=== PATIENT | female | born 1985 | race Caucasian/White ===

== ENCOUNTER 2018-08-25 08:38 | Emergency (ER) | payer SELFPAY ==
[~2018-08-25] VITALS: Ht 154.9 cm; Wt 95.3 kg
[2018-08-25 08:56] VITALS: BP 145/96
--- NOTE | 2018-08-25 09:26 | PHYS DOC ---
Past Medical History Past Medical History: Depression Past Surgical History: No Surgical History Alcohol Use: None Drug Use: None Adult General Chief Complaint Chief Complaint: RING REMOVAL HPI HPI Patient is a 33 year old female who presents to the emergency room with complaints of a ring being stuck on her left index finger for the last 2 days. She denies any injury, numbness, tingling, or decreased movement of the affected finger. She denies any increased pain with movement of the affected finger. Review of Systems Review of Systems Musculoskeletal: See history of present illness Integument: Denies rash or skin lesions [] Neurologic: Denies focal weakness or sensory changes [] Complete systems were reviewed and found to be within normal limits, except as documented in this note. Allergies Allergies Allergies Coded Allergies Type Severity Reaction Last Updated Verified No Known Drug Allergies 02/18/15 No Physical Exam Physical Exam Constitutional: Well developed, well nourished, no acute distress, non-toxic appearance. [] HENT: Normocephalic, atraumatic, bilateral external ears normal, nose normal. [] Eyes: conjunctiva normal, no discharge. [] Skin: Warm, dry, no erythema, no rash. [] Extremities: No tenderness, no cyanosis, no clubbing, ROM intact, 1+ edema noted to left index finger with ring stuck between the MCP and PIP Neurologic: Alert and oriented X 3, normal motor function, normal sensory function, no focal deficits noted. [] Psychologic: Affect normal, judgement normal, mood normal. [] Current Patient Data Vital Signs Vital Signs Date Time Temp Pulse Resp B/P (MAP) Pulse Ox O2 Delivery O2 Flow Rate FiO2 08/25/18 08:56 98.0 90 16 145/96 (112) 98 Room Air 98.0 EKG EKG [] Radiology/Procedures Radiology/Procedures Ring was removed by RN with ring cutter, no abrasions or deformity noted post removal[] Course & Med Decision Making Course & Med Decision Making Pertinent Labs and Imaging studies reviewed. (See chart for details) [] Staff Physician Addendum: I was working in the ER during the course of this patient's visit. I was available for consultation as needed, but I was not directly involved in the care of this patient. Dragon Disclaimer Dragon Disclaimer This electronic medical record was generated, in whole or in part, using a voice recognition dictation system. Departure Departure Impression: Primary Impression: Tight ring on finger Disposition: 01 HOME, SELF-CARE Condition: STABLE Referrals: NO PCP (PCP) Patient Instructions: Contusion, [id number] Additional Instructions: Elevate and apply ice to the swollen area, may take Tylenol or ibuprofen as needed for pain. Follow-up with your primary care doctor for symptoms persist. Return to the emergency room if symptoms worsen. RICKIE MAHAN APRN Aug 25, 2018 09:25 KARON REYES MD Aug 25, 2018 13:57
== END 2018-08-25 09:41 | disposition home or self-care (01) ==
LOC: ER 08:38
DX: S60.451A Superficial foreign body of left index finger, initial encounter (principal); F32.9 Major depressive disorder, single episode, unspecified; W49.04XA Ring or other jewelry causing external constriction, initial encounter; Y93.89 Activity, other specified; Y92.89 Other specified places as the place of occurrence of the external cause; Y99.8 Other external cause status
CPT/HCPCS: 99284

== ENCOUNTER 2018-10-16 13:19 | Emergency (ER) | payer SELFPAY ==
[~2018-10-16] VITALS: Ht 157.5 cm; Wt 83.9 kg
[2018-10-16 13:19] VITALS: BP 169/111
--- NOTE | 2018-10-16 14:08 | PHYS DOC ---
Past Medical History Past Medical History: Anxiety, Depression Past Surgical History: No Surgical History Additional Information: 0.75 PPD Alcohol Use: Heavy Additional Information: DAILY," 5.2 OUNCES ALCOHOL DAILY" Drug Use: None Adult General Chief Complaint Chief Complaint: ANXIETY/PANIC ATTACK HPI HPI Patient is a 33 year old female with long-standing history of alcohol abuse and anxiety presents with complaints of increasing anxiety and continued alcohol abuse. No report of HI, SI, hallucinations delusions or paranoia. Recently released from correctional facility. Does not request any help in the emergency department and declines labs, and will assistance offered. Patient was willing to speak with CARSON Huggins of the psychiatric assessment team. [] Review of Systems Review of Systems Review of systems unavailable due to limited cooperation All other systems were reviewed and found to be within normal limits, except as documented in this note. Allergies Allergies Allergies Coded Allergies Type Severity Reaction Last Updated Verified No Known Drug Allergies 02/18/15 No Physical Exam Physical Exam Constitutional: Disheveled, tearful.[] HENT: Normocephalic, atraumatic, bilateral external ears normal, oropharynx moist, no oral exudates, nose normal. [] Eyes: PERRLA, EOMI, conjunctiva normal, conjunctiva injected. [] Extremities: No tenderness, no cyanosis, no clubbing, ROM intact, no edema. [] Neurologic: Alert and oriented X 3, slurring of words normal motor function, normal sensory function, no focal deficits noted. [] Psychologic: Affect tearful, emotionally labile, no HI SI hallucinations[] Current Patient Data Vital Signs Vital Signs Date Time Temp Pulse Resp B/P (MAP) Pulse Ox O2 Delivery O2 Flow Rate FiO2 10/16/18 13:19 97.5 122 24 169/111 (130) 99 Room Air 97.5 EKG EKG [] Radiology/Procedures Radiology/Procedures [] Course & Med Decision Making Course & Med Decision Making Pertinent Labs and Imaging studies reviewed. (See chart for details) [Patient alert and oriented 3. She is able to say why she is here and declines all medical evaluation and help offered and requests to leave the emergency department. Outpatient resources alcohol and anxiety offered. Patient discharged AGAINST MEDICAL ADVICE.] Dragon Disclaimer Dragon Disclaimer This electronic medical record was generated, in whole or in part, using a voice recognition dictation system. Departure Departure Impression: Primary Impression: Anxiety state Additional Impression: Substance abuse Disposition: 07 AGAINST MEDICAL ADVICE Condition: GUARDED Patient Instructions: Alcohol Intoxication, [id number], Substance Abuse-Brief Additional Instructions: Please follow up with your PCP and the outpatient resoureces provided for you for evaluation and management of anxiety and alcohol dependance. Problem Qualifiers KIRSTEN MARTINEZ DO Oct 16, 2018 14:08
== END 2018-10-16 14:44 | disposition left against medical advice (07) ==
LOC: ER 13:19
DX: F41.9 Anxiety disorder, unspecified (principal); F19.10 Other psychoactive substance abuse, uncomplicated; F10.20 Alcohol dependence, uncomplicated; Y90.9 Presence of alcohol in blood, level not specified; F32.9 Major depressive disorder, single episode, unspecified
CPT/HCPCS: 99284

== ENCOUNTER 2019-11-18 19:23 | Emergency (ER) | payer SELFPAY ==
[~2019-11-18] VITALS: Ht 165.1 cm; Wt 81.8 kg
[2019-11-18] MEDS ORDERED: MULTIVIT INFUSN,ADULT 4,VIT K 10 ML, THIAMINE INJ 100 MG, FOLIC ACID INJ 1 MG in IV NOR... IV ONE (20:00)
[2019-11-18 20:07] LABS: BASO # 0.1 x10^3/uL (0.0-0.2); BASO % 1 % (0-3); EOS # 0.2 x10^3/uL (0.0-0.7); EOS % 2 % (0-3); HEMATOCRIT 44.2 % (36.0-47.0); LYMPH # 2.3 x10^3/uL (1.0-4.8); LYMPH % 36 % (24-48); MEAN CORPUSCULAR HEMOGLOBIN 30 pg (25-35); MEAN CORPUSCULAR HGB CONC 34 g/dL (31-37); MEAN CORPUSCULAR VOLUME 87 fL (79-100); MONO # 0.3 x10^3/uL (0.0-1.1); MONO % 5 % (0-9); NEUT # 3.6 x10^3/uL (1.8-7.7); NEUT % 56 % (31-73); PLATELET COUNT 289 x10^3/uL (140-400); RED BLOOD COUNT 5.07 x10^6/uL (3.50-5.40); RED CELL DISTRIBUTION WIDTH 14.6 % (11.5-14.5); WHITE BLOOD COUNT 6.4 x10^3/uL (4.0-11.0)
[2019-11-18 20:24] LABS: CALCIUM 8.7 mg/dL (8.5-10.1); CREATININE 0.7 mg/dL (0.6-1.0); GFR 95.8
[2019-11-18 20:29] LABS: ALBUMIN 4.1 g/dL (3.4-5.0); ALBUMIN/GLOBULIN RATIO 1.1 (1.0-1.7); MAGNESIUM 2.4 mg/dL (1.8-2.4); TOTAL BILIRUBIN 0.5 mg/dL (0.2-1.0); TOTAL PROTEIN 7.8 g/dL (6.4-8.2)
--- NOTE | 2019-11-18 21:42 | PHYS DOC ---
Past Medical History Past Medical History: Anxiety, Depression, Other Additional Past Medical Histor: ETOH ABUSE/DRUG ABUSE Past Surgical History: No Surgical History Smoking Status: Current Every Day Smoker Additional Information: 2 PPD Alcohol Use: Heavy Additional Information: DAILY, "ALOT" Drug Use: None Adult General Chief Complaint Chief Complaint: ALCOHOL INTOXICATION HPI HPI Patient is a 34 year old female with history of anxiety, alcoholism and drug abuse who presents with acute alcohol intoxication after drinking an unknown quantity of alcohol throughout the day. Patient lives with family members. It is unclear who contacted EMS and no family members have called ED. Initially, EMS reports the patient was unresponsive. On ED arrival, the patient is alert and oriented with slurred and at times incoherent speech. She is tearful anxious requesting discharge from the hospital. She does not exhibit suicidal or homicidal behavior or ideation. No report of intentional drug overdose. History is limited due to the patient's mental status. [] Review of Systems Review of Systems Review of symptoms as per HPI. All other review of symptoms are negative. All other systems were reviewed and found to be within normal limits, except as documented in this note. Current Medications Current Medications Current Medications Medications (Trade) Dose Ordered Sig/Antelmo Start Time Stop Time Status Last Admin Dose Admin Multivitamins 10 ml/Thiamine HCl 100 mg/Folic Acid 1 mg/Sodium Chloride 1,011.2 ml @ 1,000.088 mls/hr 1X ONCE 11/18/19 20:00 11/18/19 21:00 DC 11/18/19 20:03 1,000.088 MLS/HR Allergies Allergies Allergies Coded Allergies Type Severity Reaction Last Updated Verified No Known Drug Allergies 02/18/15 No Physical Exam Physical Exam Constitutional: Anxious, tearful, smells of EtOH intoxicants. [] HENT: Normocephalic, atraumatic, bilateral external ears normal, oropharynx moist, nose normal. [] Eyes: PERRLA, EOMI, conjunctiva normal. [] Neck: Normal range of motion. [] Cardiovascular:Heart rate regular rhythm, no murmur. [] Lungs & Thorax: Respirations nonlabored, lung sounds clear. [] Abdomen: Soft, nontender. [] Skin: Warm, dry, no erythema, no rash. [] Back: No tenderness, no CVA tenderness. [] Extremities: No tenderness, no cyanosis, no clubbing, ROM intact, no edema. [] Neurologic: Alert and oriented X person, normal motor function, normal sensory function, no focal deficits noted. [] Psychologic: Affect anxious, no HI or SI.. [] Current Patient Data Vital Signs Vital Signs Date Time Temp Pulse Resp B/P (MAP) Pulse Ox O2 Delivery O2 Flow Rate FiO2 11/19/19 00:41 108 24 131/76 (94) 98 Room Air 11/18/19 19:23 96.1 96.1 Lab Values Laboratory Tests Test 11/18/19 19:49 11/18/19 19:55 11/19/19 01:29 POC Urine HCG, Qualitative Hcg negative (Negative) Urine Opiates Screen Neg (NEG) Urine Methadone Screen Neg (NEG) Urine Barbiturates Neg (NEG) Urine Phencyclidine Screen Neg (NEG) Urine Amphetamine/Methamphetamine Pos (NEG) Urine Benzodiazepines Screen Neg (NEG) Urine Cocaine Screen Neg (NEG) Urine Cannabinoids Screen Neg (NEG) Urine Ethyl Alcohol Pos (NEG) White Blood Count 6.4 x10^3/uL (4.0-11.0) Red Blood Count 5.07 x10^6/uL (3.50-5.40) Hemoglobin 15.0 g/dL (12.0-15.5) Hematocrit 44.2 % (36.0-47.0) Mean Corpuscular Volume 87 fL (79-100) Mean Corpuscular Hemoglobin 30 pg (25-35) Mean Corpuscular Hemoglobin Concent 34 g/dL (31-37) Red Cell Distribution Width 14.6 % (11.5-14.5) H Platelet Count 289 x10^3/uL (140-400) Neutrophils (%) (Auto) 56 % (31-73) Lymphocytes (%) (Auto) 36 % (24-48) Monocytes (%) (Auto) 5 % (0-9) Eosinophils (%) (Auto) 2 % (0-3) Basophils (%) (Auto) 1 % (0-3) Neutrophils # (Auto) 3.6 x10^3/uL (1.8-7.7) Lymphocytes # (Auto) 2.3 x10^3/uL (1.0-4.8) Monocytes # (Auto) 0.3 x10^3/uL (0.0-1.1) Eosinophils # (Auto) 0.2 x10^3/uL (0.0-0.7) Basophils # (Auto) 0.1 x10^3/uL (0.0-0.2) Sodium Level 144 mmol/L (136-145) Potassium Level 4.0 mmol/L (3.5-5.1) Chloride Level 106 mmol/L (98-107) Carbon Dioxide Level 27 mmol/L (21-32) Anion Gap 11 (6-14) Blood Urea Nitrogen 14 mg/dL (7-20) Creatinine 0.7 mg/dL (0.6-1.0) Estimated GFR (Cockcroft-Gault) 95.8 BUN/Creatinine Ratio 20 (6-20) Glucose Level 104 mg/dL (70-99) H Calcium Level 8.7 mg/dL (8.5-10.1) Magnesium Level 2.4 mg/dL (1.8-2.4) Total Bilirubin 0.5 mg/dL (0.2-1.0) Aspartate Amino Transferase (AST) 20 U/L (15-37) Alanine Aminotransferase (ALT) 19 U/L (14-59) Alkaline Phosphatase 89 U/L (46-116) Total Protein 7.8 g/dL (6.4-8.2) Albumin 4.1 g/dL (3.4-5.0) Albumin/Globulin Ratio 1.1 (1.0-1.7) Ethyl Alcohol Level 391 mg/dL (0-10) H 196 mg/dL (0-10) H Laboratory Tests 11/18/19 19:55 Laboratory Tests 11/18/19 19:55 EKG EKG [] Radiology/Procedures Radiology/Procedures [] Course & Med Decision Making Course & Med Decision Making Pertinent Labs and Imaging studies reviewed. (See chart for details) [IVF given. Patient carefully monitored. Vital signs are stable, blood alcohol 191 on reevaluation. Patient initially reported suicidal ideation but then later denied. Psychiatric assessment java development team lead consulted. Arrangements made for patient to go to inpatient detox. Linrium prescription provided. And transportation arranged.] Dragon Disclaimer Dragon Disclaimer This electronic medical record was generated, in whole or in part, using a voice recognition dictation system. Departure Departure Impression: Primary Impression: Alcohol abuse Disposition: HOME, SELF-CARE Condition: IMPROVED Referrals: NO PCP (PCP) Patient Instructions: Alcohol Problems Additional Instructions: Please go straight to [facility] upon discharge from the ED. Take Librium as directed. Scripts [librium] No Conflict Check 10 MG PO Q6HRS for annxi, #20 Prov: KIRSTEN MARTINEZ DO 11/19/19 KIRSTEN MARTINEZ DO Nov 18, 2019 21:42
[2019-11-18 22:54] LABS: BARBITURATES NEG (NEG); BENZODIAZEPINES NEG (NEG); CANNABINOIDS NEG (NEG); COCAINE NEG (NEG); METHADONE NEG (NEG); OPIATES NEG (NEG); PHENCYCLIDINE NEG (NEG)
[2019-11-18 23:04] LABS: AMPHETAMINE/METHAMPHETAMINE POS (NEG)
[2019-11-19] MEDS ORDERED: librium PO (02:18)
[2019-11-19 04:20] VITALS: BP 105/56
== END 2019-11-19 04:21 | disposition home or self-care (01) ==
LOC: ER 19:23
DX: F10.229 Alcohol dependence with intoxication, unspecified (principal); R47.81 Slurred speech; F41.9 Anxiety disorder, unspecified; F32.9 Major depressive disorder, single episode, unspecified; F17.200 Nicotine dependence, unspecified, uncomplicated
CPT/HCPCS: 36415; 80053; 80307; 81025; 83735; 85025; 99285; G0480; J3411; J3490; J7030

== ENCOUNTER 2020-11-23 08:11 | Emergency (ER) | payer SELFPAY ==
[~2020-11-23] VITALS: Ht 154.9 cm; Wt 100.0 kg
[~2020-11-23 08:11] MED LIST: librium PO
[2020-11-23 08:33] VITALS: BP 147/96
--- NOTE | 2020-11-23 09:19 | ED.ADGEN ---
Past Medical History Past Medical History: No Pertinent History Additional Past Medical Histor: ETOH ABUSE/DRUG ABUSE Past Surgical History: No Surgical History Smoking Status: Current Every Day Smoker Alcohol Use: None Drug Use: None General Adult EDM: Chief Complaint: HAND PROBLEM HPI: HPI: Patient is a 35-year-old female who presents to the emergency room complaining of numbness in bilateral hands. Patient states that she has had it intermittently for quite a while. It started 2 days ago and has not gone away. She states previously it is always gone away without being there very long. She states she believes that she may have carpal tunnel syndrome and also believes that she may be . She states that she thinks she is pretty far along but has not taken a test and has not gotten any OB care. She states she was unsure what she could take for her hands due to this. She states that it is a tingly numbness feeling in her hands almost like a burning. She denies any abdominal pain, vaginal bleeding, urinary symptoms, trauma, neck pain. Review of Systems: Review of Systems: Complete ROS is negative unless otherwise documented in HPI Allergies: Allergies: Allergies Coded Allergies Type Severity Reaction Last Updated Verified No Known Drug Allergies 02/18/15 No Physical Exam: PE: General: Awake, alert, NAD. Well Nourished, well hydrated. Cooperative HEENT: Atraumatic, EOMI, PERRL, airway patent, moist oral mucosa Neck: Supple, trachea midline Respiratory: CTA bilaterally, normal effort, no wheezing/crackles CV: RRR, no murmur, cap refill <2 GI: Soft, nontender, distended abdomen, uterus palpated above the umbilicus MSK: No obvious deformities Skin: Warm, dry, intact Neuro: A&O x3, speech NL, sensory and motor grossly intact, no focal deficits Psych: Normal affect, normal mood, not suicidal or homicidal Current Patient Data: Labs: Laboratory Tests Test 11/23/20 08:55 Urine Collection Type Unknown Urine Color Yellow Urine Clarity Clear Urine pH 7.5 (<5.0-8.0) Urine Specific [place] 1.010 (1.000-1.030) Urine Protein Negative mg/dL (NEG-TRACE) Urine Glucose (UA) Negative mg/dL (NEG) Urine Ketones (Stick) Negative mg/dL (NEG) Urine Blood Negative (NEG) Urine Nitrite Negative (NEG) Urine Bilirubin Negative (NEG) Urine Urobilinogen Dipstick 0.2 mg/dL (0.2 mg/dL) Urine Leukocyte Esterase Trace (NEG) Urine RBC 0 /HPF (0-2) Urine WBC 1-4 /HPF (0-4) Urine Squamous Epithelial Cells Few /LPF Urine Bacteria 0 /HPF (0-FEW) Vital Signs: Vital Signs Date Time Temp Pulse Resp B/P (MAP) Pulse Ox O2 Delivery O2 Flow Rate FiO2 11/23/20 08:33 97.9 95 20 147/96 (113) 97 Room Air 97.9 EKG: EKG: [] Heart Score: C/O Chest Pain: N/A Risk Factors: Risk Factors: DM, Current or recent (<one month) smoker, HTN, HLP, family history of CAD, obesity. Risk Scores: Score 0 - 3: 2.5% MACE over next 6 weeks - Discharge Home Score 4 - 6: 20.3% MACE over next 6 weeks - Admit for Clinical Observation Score 7 - 10: 72.7% MACE over next 6 weeks - Early Invasive Strategies Radiology/Procedures: Radiology/Procedures: [] Course & Med Decision Making: Course & Med Decision Making Pertinent Labs and Imaging studies reviewed. (See chart for details) Patient is a 35-year-old female who presents to the emergency room with burning in bilateral hands. This is likely due to carpal tunnel tunnel syndrome. I have discussed with the patient that she should do cock-up splints at night. We have discussed that Tylenol is safe during . Patient has received no care. Uterus is palpated above the umbilicus. Given this I do think getting an ultrasound at this time is warranted so that she can get care. Patient is measuring 30 weeks. I have discussed with her the importance of calling spoke today to get follow-up. Patient plans on going to [facility] and then also seeking treatment for her substance abuse today. UA is negative for infection. Patient's test results and vitals while in the ED were fully reviewed and discussed with the patient. Patient is stable and at this time does not need admission to the hospital. We have discussed strict return precautions and the importance of following up with their Primary Care Physician. Patient stated understanding and was given an opportunity to ask any questions. Patient is in agreement with plan. Dragon Disclaimer: Dragon Disclaimer: This electronic medical record was generated, in whole or in part, using a voice recognition dictation system. Departure Departure Impression: Primary Impression: Carpal tunnel syndrome during Disposition: 01 DC HOME SELF CARE/HOMELESS Condition: STABLE Referrals: NO PCP (PCP) Patient Instructions: Carpal Tunnel Syndrome CAREY CALDERON MD Nov 23, 2020 09:19
--- NOTE | 2020-11-23 09:30 | RAD ---
EXAM: Obstetrics sonogram. HISTORY: Hand numbness. TECHNIQUE: Sonographic imaging of a gravid uterus was performed. COMPARISON: None. FINDINGS: There is a single imaging fetus in cephalic presentation with a heart rate of 139 bpm. Ther e is a grade 1 anterior placenta without evidence of placenta previa. The amniotic fluid index is nor mal at 10.7 cm. The anatomy is not formally assessed. The biparietal diameter is 7.48 cm, corresponding with 30 weeks and 0 days. The head circumference is 27.38 cm, corresponding with 29 weeks and 6 days. The abdominal circumference is 27.51 cm, correspon ding with 31 weeks and 4 days. The femoral length is 5.91 cm, corresponding with 30 weeks and 6 days. The estimated gestational age patient combined ultrasound measurements is 30 weeks and 4 days and the estimated weight is 1689 g. The estimated due date is 01/28/2021. . IMPRESSION: Single intrauterine fetus in cephalic presentation with normal heart rate and gestational age based on ultrasound measurements of 30 weeks and 4 days. The anatomy is not formally asses sed on this exam. Electronically signed by: Tali Hammonds MD (11/23/2020 9:28 AM) [id number]
[2020-11-23 09:41] LABS: BILIRUBIN,URINE NEGATIVE (NEG); CLARITY,URINE CLEAR; COLOR,URINE YELLOW; NITRITE,URINE NEGATIVE (NEG); PH,URINE 7.5 (<5.0-8.0); PROTEIN,URINE NEGATIVE (NEG-TRACE); UROBILINOGEN,URINE 0.2 mg/dL (0.2 mg/dL)
[2020-11-23 09:57] LABS: BACTERIA,URINE 0 /HPF (0-FEW); RBC,URINE 0 /HPF (0-2)
== END 2020-11-23 10:15 | disposition home or self-care (01) ==
LOC: ER 08:11
DX: O99.891 Other specified diseases and conditions complicating pregnancy (principal); G56.03 Carpal tunnel syndrome, bilateral upper limbs; F17.200 Nicotine dependence, unspecified, uncomplicated
CPT/HCPCS: 76815; 81001; 99284